=== PATIENT | female | born 1995 | race Caucasian/White ===

== ENCOUNTER 2017-05-26 17:07 | Emergency (ER) | payer OTHER ==
[2017-05-26 17:50] LABS: BILIRUBIN,URINE NEG (NEG); CLARITY,URINE CLEAR; COLOR,URINE YELLOW; GLUCOSE,URINE NEG (NEG); NITRITE,URINE NEG (NEG); UROBILINOGEN,URINE 0.2 mg/dL (0.2 mg/dL)
[2017-05-26 18:00] LABS: BACTERIA,URINE FEW /HPF (0-FEW); RBC,URINE 0 /HPF (0-2); SQUAMOUS EPITHELIAL CELL,UR FEW /LPF; WBC,URINE RARE /HPF (0-4)
[2017-05-26 19:34] VITALS: BP 125/76
--- NOTE | 2017-05-26 19:41 | PHYS DOC ---
General Chief Complaint: FLANK PAIN Stated Complaint: FLANK PAIN Time Seen by MD: 18:35 Source: patient Exam Limitations: no limitations Problems: History of Present Illness Initial Comments Patient is a 19 weeks gestation 21-year-old female 1 who comes to the ED complaining of possible kidney stone. Patient follows with toolmaker Dr. Delgado, she says that she called her toolmaker earlier today to report current symptoms and her doctor recommended that she go to [facility] for further evaluation and treatment. Patient states that she did not want to drive that far so she came here. Her last menstrual period was January 15 her estimated due date is October 22 , heart tones reassuring in the emergency department 150 bpm. Patient states that she developed severe left-sided flank pain earlier today radiating down to the left groin, she's had urinary frequency and hesitancy with dysuria. Symptoms are consistent with prior kidney stones, she states that she passed a 7 mm stone this past summer with the assistance of a ureteral stent. She denies fever chills sweats or myalgias and denies any vaginal bleeding, new or changing discharge. She does complain of dyspareunia which exacerbates her left flank pain symptoms. Vitals: 98.4, 97, 18, 123/78, 100% room air Timing/Duration: 24 hours Severity: severe Modifying Factors: improves with other Associated Symptoms: other Allergies: Coded Allergies: Penicillins (Verified Allergy, Unknown, 05/26/17) Past Medical History Medical History: kidney stones Surgical History: other Para: 0 : 1 LMP (Females 10-50): Social History Smoker: non-smoker Alcohol: none Drugs: none Review of Systems Constitutional: denies chills, denies diaphoresis, denies fever, denies malaise Respiratory: denies cough, denies shortness of breath Cardiovascular: denies chest pain, denies palpitations Gastrointestinal: see HPI, nausea, denies vomiting Genitourinary: see HPI Musculoskeletal: see HPI, denies joint swelling, denies neck pain Psychiatric/Neurological: denies headache, denies numbness, denies paresthesia Physical Exam General Appearance: WD/WN, no apparent distress Ear, Nose, Throat: hearing grossly normal, normal ENT inspection Neck: non-tender, supple Respiratory: normal breath sounds, no respiratory distress Cardiovascular: normal peripheral pulses, regular rate, rhythm Gastrointestinal: normal bowel sounds, soft Back: no vertebral tenderness, CVA tenderness (L) Extremities: non-tender, normal inspection, no pedal edema Neurologic/Psychiatric: senior resident care director II-XII nml as tested, no motor/sensory deficits, alert, normal mood/affect, oriented x 3 Skin: normal color, warm/dry Orders, Labs, Meds UA: No acute abnormalities 1924: I discussed the patient on the phone with Dr. Perera, after thorough discussion of the patient's history, ED presentation and urine results he is in agreement that she would be better served with further evaluation and treatment at his facility. He is agreeable to her coming private auto he does request that she remain nothing by mouth. He requests that she report to the labor and delivery desk and will make preparations. Departure Time of Disposition: 19:38 Disposition: 02 XFER SHT-TRM HOSP Diagnosis: possible left ureterolithiasis, Condition: STABLE Patient Instructions: Kidney Stones, [id number] Additional Instructions: As discussed and per your doctor's request please do not eat or drink anything and after you are evaluated at [place]. Without any detours or delays please drive directly to [facility] take your discharge paperwork we give you here to the registration desk at the labor and delivery floor. Return to ED with new or changing symptoms. WAYNE ELY DO May 26, 2017 19:41
== END 2017-05-26 19:45 | disposition short-term general hospital (02) ==
LOC: ER 17:07
DX: O26.892 Other specified pregnancy related conditions, second trimester (principal); R10.9 Unspecified abdominal pain; R35.0 Frequency of micturition; R30.0 Dysuria; Z88.0 Allergy status to penicillin; Z87.442 Personal history of urinary calculi; Z3A.22 22 weeks gestation of pregnancy
CPT/HCPCS: 81001; 99285